=== PATIENT | female | born 1975 | race Caucasian/White ===

== ENCOUNTER 2017-09-03 06:25 | Day surgery (SDC) | payer BC ==
[~2017-09-03] VITALS: Ht 165.1 cm; Wt 61.7 kg
[2017-09-03] MEDS ORDERED: SIMETHICONE 40 MG/0.6 ML ML ONE (06:38)
[2017-09-03] MEDS ORDERED: MIDAZOLAM HCL 5 MG/5 ML VIAL ONE (06:41)
[2017-09-03] MEDS ORDERED: fentaNYL CITRATE/PF 100 MCG/2 ML AMP ONE ×2 (06:41→07:21)
[2017-09-03 06:56] LABS: HCG,QUAL RESULT NEGATIVE (NEGATIVE)
[2017-09-03 08:01] VITALS: BP_SYST 115
== END 2017-09-03 08:25 | disposition home or self-care (01) ==
LOC: SDS 06:25
PROVIDERS: ATTEND Colon & Rectal Surgery
DX: Z08 Encounter for follow-up examination after completed treatment for malignant neoplasm (principal); Z85.038 Personal history of other malignant neoplasm of large intestine; Z86.010 Personal history of colon polyps; K57.30 Diverticulosis of large intestine without perforation or abscess without bleeding; Z85.048 Personal history of other malignant neoplasm of rectum, rectosigmoid junction, and anus; K91.89 Other postprocedural complications and disorders of digestive system; K64.9 Unspecified hemorrhoids; G43.909 Migraine, unspecified, not intractable, without status migrainosus; J45.909 Unspecified asthma, uncomplicated
CPT/HCPCS: 45378; 84703; J2250; J3010; J7030

== ENCOUNTER 2019-08-11 06:30 | Day surgery (SDC) | payer BC ==
[~2019-08-11] VITALS: Ht 165.1 cm; Wt 67.1 kg
[2019-08-11] MEDS ORDERED: fentaNYL CITRATE/PF 100 MCG/2 ML AMP ONE (07:10)
[2019-08-11] MEDS ORDERED: SIMETHICONE 40 MG/0.6 ML ML ONE (07:10)
[2019-08-11] MEDS ORDERED: MIDAZOLAM HCL 5 MG/5 ML VIAL ONE (07:10)
[2019-08-11 07:11] LABS: HCG,QUAL RESULT NEGATIVE (NEGATIVE)
[2019-08-11] MEDS ORDERED: DIPHENHYDRAMINE INJ 50 MG/ML VIAL ONE (07:15)
[2019-08-11] MEDS ORDERED: NALOXONE HCL 0.4 MG/ML AMP (NARCAN) ONE (07:15)
[2019-08-11] MEDS ORDERED: FLUMAZENIL 0.1 MG/ML IVP ONE (07:15)
[2019-08-11 12:56] VITALS: BP_SYST 117
== END 2019-08-11 08:30 | disposition home or self-care (01) ==
LOC: SDS 06:30 → SMU 06:30 → SDS 08:30
PROVIDERS: ATTEND Colon & Rectal Surgery
DX: K62.5 Hemorrhage of anus and rectum (principal); K64.8 Other hemorrhoids; Z98.0 Intestinal bypass and anastomosis status; Z98.890 Other specified postprocedural states; Z85.048 Personal history of other malignant neoplasm of rectum, rectosigmoid junction, and anus
CPT/HCPCS: 45378; 84703; 99152; G0378; J2250; J2310; J3010; J7030; J1200; J3490